=== PATIENT | female | born 1950 | race Caucasian/White ===

== ENCOUNTER 2016-05-04 01:22 | Inpatient (IN) | payer MEDICARE ==
[2016-05-04] VITALS (31 sets, daily range): BP systolic 46–200; BP diastolic 34–111; PULSE 69–113; RESP 14–26; TEMP 93.9; Ht 172.7 cm; Wt 59.1 kg
[~2016-05-04] VITALS: Ht 172.7 cm; Wt 59.1 kg
[2016-05-04] MEDS ORDERED: CEFTRIAXONE 1 GM/50 ML (PMX) 50 ML IVPB STA (01:35)
[2016-05-04 01:46] LABS: ADD UMIC YES; URINE BILIRUBIN (Dip) NEGATIVE (NEGATIVE); URINE BLOOD (Dip) NEGATIVE (NEGATIVE); URINE COLOR LT. YELLOW (YELLOW); URINE GLUCOSE (Dip) NEGATIVE (NEGATIVE); URINE KETONES (Dip) NEGATIVE (NEGATIVE); URINE LEUKOCYTE ESTERASE (Dip) NEGATIVE (NEGATIVE); URINE NITRITE (Dip) NEGATIVE (NEGATIVE); URINE TOTAL PROTEIN (Dip) 1+ (NEGATIVE); URINE UROBILINOGEN (Dip) 0.2 E.U./dL (0.1-1.0)
[2016-05-04 01:49] LABS: ALBUMIN 4.1 g/dl (3.3-4.9); CHLORIDE 100 mmol/L (97-110)
[2016-05-04 01:50] LABS: INR 1.71; POTASSIUM 3.6 mmol/L (3.5-5.1); PROTIME 20.2 Sec (12.2-14.2); PT RATIO 1.6; SODIUM 143 mmol/L (135-144)
[2016-05-04 01:52] LABS: ALBUMIN/GLOBULIN RATIO 1.24; ANION GAP 19 (8-16); ASPARTATE AMINO TRANSFERASE 31 IU/L (15-46); BASOPHIL # 0.1 10^3/ul (0.0-0.1); BASOPHILS % 0.8 % (0.0-2.0); BILIRUBIN,INDIRECT 0.4 mg/dl (0-1.1); BILIRUBIN,TOTAL 0.4 mg/dl (0.2-1.3); CARBON DIOXIDE 28 mmol/L (21-31); CREATININE 0.74 mg/dl (0.44-1.00); EOSINOPHILS # 0.3 10^3/ul (0.0-0.5); EOSINOPHILS % 2.4 % (0.0-7.0); HEMATOCRIT 39.5 % (37.0-47.0); HEMOGLOBIN 12.6 g/dl (12.0-16.0); LYMPHOCYTES # 4.9 10^3/ul (0.8-2.9); LYMPHOCYTES % 39.5 % (15.0-51.0); MEAN CORPUSCULAR HEMOGLOBIN 26.2 pg (29.0-33.0); MEAN CORPUSCULAR HGB CONC 31.9 g/dl (32.0-37.0); MONOCYTE # 1.1 10^3/ul (0.3-0.9); MONOCYTES % 9.1 % (0.0-11.0); NEUTROPHILS % 48.2 % (39.0-77.0); PLATELET COUNT 388 10^3/UL (140-440); RED BLOOD COUNT 4.82 10^6/ul (4.20-5.40); RED CELL DISTRIBUTION WIDTH 19.5 % (11.5-14.5); TOTAL PROTEIN 7.4 g/dl (6.1-8.1); UNCORRECTED WBC 12.5 10^3/ul (4.8-10.8); WHITE BLOOD COUNT 12.5 10^3/ul (4.8-10.8)
[2016-05-04 01:53] LABS: ALANINE AMINOTRANSFERASE 20 IU/L (13-69); ALKALINE PHOSPHATASE 79 IU/L (42-121); BLOOD UREA NITROGEN 25 mg/dl (7-20); CALCIUM 9.2 mg/dl (8.4-10.2); GLUCOSE 250 mg/dl (70-220)
[2016-05-04 01:55] LABS: CONDITION 1; LH ANALYZER COMMENTS 1
[2016-05-04 01:55] LABS: URINE RBCS 0-2 /HPF (0)
[2016-05-04 01:56] LABS: SQUAMOUS EPITHELIAL CELL,UR FEW
[2016-05-04 01:57] LABS: BACTERIA,URINE RARE
[2016-05-04] MEDS ORDERED: LEVOFLOXACIN 750MG/D5W (PMX) 150 ML IVPB ONE (02:00)
--- NOTE | 2016-05-04 02:03 | RADRPT ---
PROCEDURE: XR Chest. CLINICAL INDICATION: Possible sepsis. TECHNIQUE: Single frontal view of the chest was obtained COMPARISON: None FINDINGS: Endotracheal intubation is seen with tip about 36 mm above the nadeem. Nasogastric tube is seen wit h tip and side port in the proximal to mid stomach. The heart and mediastinum are within normal limits. Mild right lung base atelectasis versus airspace disease. Left lung is clear. There is no pleural effusion or pneumothorax. IMPRESSION: 1. Endotracheal intubation is seen with tip about 36 mm above the nadeem. 2. Nasogastric tube is seen with tip and side port in the proximal to mid stomach. 3. Mild right lung base atelectasis versus airspace disease, suggesting pneumonia in setting of sep sis. RPTAT: [facility]U Physician Ashtyn Date Time Electronically viewed and signed by Physician Ashtyn on 05/04/2016 02:03 RS/
[2016-05-04 02:07] LABS: TROPONIN-I < 0.012 ng/ml (0.00-0.12)
[2016-05-04] MEDS ORDERED: LEVETIRACETAM IV 1,000 MG in SOD CHLORIDE 0.9% 100 ML IVPB STA (02:18)
[2016-05-04] MEDS ORDERED: niCARdipine-D5W 0.1MG/ML DRIP 200 ML IV STA (02:18)
--- NOTE | 2016-05-04 02:23 | RADRPT ---
PROCEDURE: CT brain without contrast. CLINICAL INDICATION: Altered mental status. TECHNIQUE: CT scan of the brain was performed on a multi-detector high-resolution CT scanner. Co ntiguous axial images were obtained from the skull base to the vertex without intravenous contrast. Coronal and sagittal reformatted images were also obtained. Images were reviewed on the PACS works tation. One or more of the following dose reduction techniques were used: - Automated exposure control. - Adjustment of the mA and/or kV according to patient size. - Use of iterative reconstruction technique. Exam CTD/vol = 44.26 mGy. Total exam DLP = 810.25 mGy-cm. COMPARISON: None. FINDINGS: There is a large area of hemorrhage throughout the brain stem and cerebellar vermis. There is moder ate intraventricular hemorrhage. The ventricles including bilateral temporal horns are dilated cons istent with mild hydrocephalus. There is subarachnoid hemorrhage within the basal cistern. The ventr icles and cortical sulci are prominent consistent with mild age related volume loss. There are patc hy areas of low attenuation within the periventricular white matter consistent with mild chronic isc hemic changes secondary to small vessel disease. There is no midline shift. There is prior bilateral suboccipital craniotomy with areas of encephalomalacia within the cerebellu m. Visualized paranasal sinuses and mastoid air cells are clear. IMPRESSION: Large area of hemorrhage throughout the brain stem and cerebellar vermis. Moderate intraventricular hemorrhage. Mild subarachnoid hemorrhage within the basal system. Mild hydrocephalus. Mild age related volume loss and chronic ischemic white matter disease. A call report was made to Dr. Farris at 02:20 a.m. .Pineda Collins MD, MD Date Time Electronically viewed and signed by .Pineda Collins MD, MD on 05/04/2016 02:23 .T/
[2016-05-04] MEDS ORDERED: LABETALOL HCL 20MG INJ IV ONE (02:30)
[2016-05-04 02:36] LABS: Allen Test ACCEPTAB; Arterial Base Excess 1.8 mmol/L (-3.0-3); Arterial COHb 0.1 % (0.0-3.0); Arterial Fraction of Oxyhgb 99.1 % (93.0-99.0); Arterial HCO3 27.3 mmol/L (22.0-26.0); Arterial MetHb 0.2 % (0.0-1.5); Arterial Total Hemglobin 13.3 g/dl (12.0-18.0); MODE VENT - AC
[2016-05-04] MEDS ORDERED: SOD CHLORIDE 0.9% 250 ML IV ONE (02:39)
[2016-05-04] MEDS ORDERED: ACETAMINOPHEN 325 MG TAB PO PRN (05:00)
[2016-05-04] MEDS ORDERED: ALBUTEROL HFA 8 GM INHALER INH PRN (05:00)
[2016-05-04] MEDS ORDERED: IPRATROPIUM (HFA) 12.9 GM INHALER INH PRN (05:00)
[2016-05-04] MEDS ORDERED: LABETALOL HCL 20MG INJ IV PRN (05:00)
[2016-05-04] MEDS ORDERED: morphine 2 MG INJ IV PRN (05:00)
[2016-05-04] MEDS ORDERED: ONDANSETRON 4 MG INJ IV PRN (05:00)
[2016-05-04] MEDS ORDERED: LORAZEPAM 2 MG INJ IV PRN (05:00)
--- NOTE | 2016-05-04 05:39 | ERA ---
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 HPI 65-year-old female brought in by ambulance for respiratory distress at home. She reportedly called out for help. Her son ran in the door and she immediately collapsed. When EMS arrived, her respirations were agonal. She was not responsive. Intubation was attempted without success. Her vitals remained stable in route with supplemental oxygen by bag valve mask. Further history is not available as there is no family at bedside. The paperwork brought in by ambulance shows that the patient has a history of ependymoma and atrial fibrillation, on Xarelto. ROS Limited as the patient is in extremis Allergies Allergies: Coded Allergies: Cephalosporins (Unverified Allergy, Intermediate, CHILLS/SHAKEY, 05/04/16) cefaclor (Unverified Allergy, Intermediate, DIZZINESS, 05/04/16) PMhx/Soc History of Surgery: Yes (PEG TUBE, BRAIN TUMOR removal) Anesthesia Reaction: No Hx Neurological Disorder: Yes (BRAIN CA (COMPLETED CHEMO/RADIATION 11/2015), SEIZURES, TIA'S) Hx Respiratory Disorders: Yes (DYSPHAGIA, pneumonia) Hx Cardiac Disorders: Yes (AFIB, IDIOPATHIC HYPOTENSION) Hx Psychiatric Problems: No Hx Miscellaneous Medical Probl: Yes (THYROID PROBLEM, EPENDYMOMA, SEVERE SEPSIS ) Hx Tobacco Use: Yes Smoking Status: Former smoker FmHx Family History: other (Unable to obtain) Physical Exam Vitals Vital Signs Date Time Temp Pulse Resp B/P Pulse Ox O2 Delivery O2 Flow Rate FiO2 05/04/16 04:50 63 14 100 40 05/04/16 03:10 93.1 05/04/16 02:50 63 18 153/101 97 Mechanical Ventilator 05/04/16 02:45 64 18 149/101 97 Mechanical Ventilator 05/04/16 02:40 66 18 148/101 100 Mechanical Ventilator 05/04/16 02:40 64 14 100 40 05/04/16 02:35 71 18 211/113 100 Mechanical Ventilator 05/04/16 02:30 73 18 219/129 100 Mechanical Ventilator 05/04/16 02:25 72 18 215/131 100 Mechanical Ventilator 05/04/16 02:20 72 18 214/126 100 Mechanical Ventilator 05/04/16 02:15 73 18 213/121 100 Mechanical Ventilator 05/04/16 02:10 74 18 222/135 100 Mechanical Ventilator 05/04/16 02:05 75 18 213/121 100 Mechanical Ventilator 05/04/16 02:00 75 18 211/120 100 Mechanical Ventilator 05/04/16 01:55 75 18 205/121 100 Mechanical Ventilator 05/04/16 01:50 75 18 203/122 100 Mechanical Ventilator 05/04/16 01:45 79 18 166/111 100 Mechanical Ventilator 05/04/16 01:40 83 14 113/89 100 Mechanical Ventilator 05/04/16 01:35 83 14 100 100 05/04/16 01:35 88 16 86/73 100 Mechanical Ventilator 05/04/16 01:30 89 18 110/80 100 Ambu Bag 15.0 05/04/16 01:27 97 20 157/88 100 05/04/16 01:25 Bag Valve Mask Physical Exam Const: Toxic, agonal respirations Head: Atraumatic Eyes: Normal Conjunctiva, pupils blown bilaterally right greater than left, not reactive to light ENT: Blood in oropharynx Neck: No JVD Resp: Rhonchi bilaterally Cardio: Regular rate and rhythm, no murmurs Abd: Soft, non tender, non distended. G-tube in place. Normal bowel sounds Skin: No petechiae or rashes Ext: No cyanosis, or edema Neur: Obtunded, no purposeful movements Result Diagram: 05/04/1612905/04/16 0130 Results 24 hrs Laboratory Tests Test 05/04/16 01:25 05/04/16 01:30 05/04/16 01:35 05/04/16 04:30 Urine Bacteria RARE Urine Bilirubin NEGATIVE Urine Clarity CLEAR Urine Color LT. YELLOW Urine Glucose NEGATIVE% Urine Hemoglobin NEGATIVE Urine Ketones NEGATIVE Urine Leukocyte Esterase NEGATIVE Urine Microscopic RBC 0-2/HPF Urine Microscopic WBC 0-2/HPF Urine Nitrite NEGATIVE Urine Specific [place] 1.025 Urine Squamous Epithelial Cells FEW Urine Total Protein 1+ Urine Urobilinogen 0.2 E.U./dL Urine pH 6.0 Activated Partial Thromboplast Time 28.0Sec Alanine Aminotransferase (ALT/SGPT) 20IU/L Albumin 4.1g/dl Albumin/Globulin Ratio 1.24 Alkaline Phosphatase 79IU/L Anion Gap 19 Aspartate Amino Transf (AST/SGOT) 31IU/L Basophils # 0.110^3/ul Basophils % 0.8% Blood Morphology Comment Blood Urea Nitrogen 25mg/dl Calcium Level 9.2mg/dl Carbon Dioxide Level 28mmol/L Chloride Level 100mmol/L Creatinine 0.74mg/dl Direct Bilirubin 0.00mg/dl Eosinophils # 0.310^3/ul Eosinophils % 2.4% Globulin 3.30g/dl Glucose Level 250mg/dl Hematocrit 39.5% Hemoglobin 12.6g/dl INR International Normalized Ratio 1.71 Indirect Bilirubin 0.4mg/dl Lactic Acid Level 3.1mmol/L 2.0mmol/L Lymphocytes # 4.910^3/ul Lymphocytes % 39.5% Mean Corpuscular Hemoglobin 26.2pg Mean Corpuscular Hemoglobin Concent 31.9g/dl Mean Corpuscular Volume 82.0fl Mean Platelet Volume 8.0fl Monocytes # 1.110^3/ul Monocytes % 9.1% Neutrophils # 6.010^3/ul Neutrophils % 48.2% Nucleated Red Blood Cells # 0.010^3/ul Nucleated Red Blood Cells % 0.0/100WBC Platelet Count 44350^3/UL Potassium Level 3.6mmol/L Prothrombin Time 20.2Sec Prothrombin Time Ratio 1.6 Red Blood Count 4.8210^6/ul Red Cell Distribution Width 19.5% Sodium Level 143mmol/L Total Bilirubin 0.4mg/dl Total Protein 7.4g/dl Troponin I < 0.012ng/ml White Blood Count 12.510^3/ul Arterial Blood HCO3 27.3mmol/L Arterial Blood Base Excess 1.8mmol/L Arterial Blood Oxygen Saturation 99.4mmHG Arie Test ACCEPTAB Arterial Blood Gas Puncture Site Right Radial Arterial Blood Carboxyhemoglobin 0.1% Arterial Blood Date Drawn 05/04/2016 2:20:01 AM Arterial Blood Methemoglobin 0.2% Arterial Blood pCO2 (Temp correct) 46.2mmhg Arterial Blood pH (Temp corrected) 7.389 Arterial Blood pO2 (Temp corrected) 266.8mmHG Blood Gas A-a O2 Differential 400.0mmHg Blood Gas Actual Respiration Rate 14 Blood Gas Inspiratory Pressure 22.0 Blood Gas Low PEEP Setting 5.0cmH2O Blood Gas Modality VENT - AC Blood Gas Notified Time 05/04/2016 2:36:20 AM Blood Gas Notified Whom MA Blood Gas Respiration Rate 14.0 Blood Gas Specimen Source Blood arterial Blood Gas Temperature 37.0C Blood Gas Tidal Volume 452.0mL FiO2 100.0% Oxyhemoglobin Percent 99.1% Total Hemoglobin 13.3g/dl Current Medications Medications (Trade) Dose Ordered Sig/Francisco Route PRN Reason Start Time Stop Time Status Last Admin Dose Admin Ceftriaxone Sodium 50 ml @ 100 mls/hr ONCE STAT IVPB 05/04/16 01:35 05/04/16 01:45 DC Levofloxacin/ Dextrose (Levaquin 750 Mg/ D5W 150 ml (Pmx)) 150 ml @ 100 mls/hr ONCE ONCE IVPB 05/04/16 02:00 05/04/16 03:29 DC 05/04/16 02:21 Labetalol HCl 20 mg 20 mg ONCE ONCE IV 05/04/16 02:30 05/04/16 02:31 DC 05/04/16 02:27 Levetiracetam 1000 mg/Sodium Chloride 110 ml @ 400 mls/hr ONCE STAT IVPB 05/04/16 02:18 05/04/16 02:34 DC 05/04/16 02:54 Nicardipine HCl 200 ml @ 50 mls/hr ONCE STAT IV 05/04/16 02:18 05/04/16 06:17 05/04/16 03:42 Sodium Chloride (NS) 250 ml @ 0 mls/hr Q0M ONCE IV 05/04/16 02:39 05/04/16 02:41 DC 05/04/16 04:17 Ondansetron HCl (Zofran Inj) 4 mg Q6H PRN IV NAUSEA AND/OR VOMITING 05/04/16 05:00 UNV Albuterol (Ventolin Hfa) 4 puff Q2H RESP THERAPY PRN INH SHORTNESS OF BREATH 05/04/16 05:00 UNV Ipratropium [place] (Atrovent Hfa) 4 puff Q2H RESP THERAPY PRN INH SHORTNESS OF BREATH 05/04/16 05:00 UNV Morphine Sulfate (morphine) 2 mg Q4H PRN IV PAIN LEVEL 7-10 05/04/16 05:00 UNV Lorazepam (Ativan) 1 mg Q2H PRN IV ANXIETY 05/04/16 05:00 UNV Pantoprazole (Protonix Iv) 40 mg DAILY@06 IV 05/04/16 06:00 UNV Labetalol HCl 10 mg 10 mg Q10M PRN IV ELEVATED BLOOD PRESSURE 05/04/16 05:00 UNV Nicardipine HCl/ Dextrose (Cardene Iv/D5W) 250 ml @ 50 mls/hr PER PROTOCOL IV 05/04/16 05:00 UNV Acetaminophen (Tylenol Tab) 650 mg Q4H PRN PO TEMP GREATER THAN 99.6F 05/04/16 05:00 UNV Docusate Sodium (Colace) 100 mg BID PO 05/04/16 09:00 UNV Procedures/MDM EKG: Rate/Rhythm: Normal Sinus Rhythm QRS, ST, T-waves: Minimal anterior lateral ST depressions Impression: No evidence of arrhythmia, ST depressions may be signs of ischemia Patient presented after what seemed to be a respiratory arrest at home. She never lost pulses. However she was in respiratory distress and needed to given supplemental oxygen by bag valve mask. When the patient arrived, she was immediately intubated for agonal respirations. Pupils were noted to be dilated and not reactive to light. CT of the brain confirmed a cerebellar and brainstem hemorrhage with signs of increased intracranial pressure. She was started on IV medications to control her blood pressure for hypertensive emergency. Her lactate was noted to be elevated, which may be due to sepsis versus tissue hypoperfusion from her respiratory distress. Broad-spectrum antibiotics were given. Only 1 L of IV fluids were given as my suspicion for acute infection is low. 2 units of FFP were ordered as the patient is on Xarelto. I discussed the case with the neurosurgeon on-call. I discussed my findings with the patient's 2 sons at bedside. Patient will be admitted to the ICU for further management of her intracranial bleeding, hypertensive emergency , and acute respiratory failure. Severe Sepsis Assessment: Infectious Source: Possibly pneumonia End organ damage indicated by: Lactate > 2.0 mmol/L Severe Sepsis Managment: Blood Cultures X 2 before broad spectrum antibiotics initiated within 3 hours of recognition. 30 ml/kg NS bolus Completed Initial Lactate: 3.1 Repeat Lactate pending Critical Care: Time: 40 minutes Treatments/Evaluations: Emergent fluid management, while maintaining close respiratory support. Immediate broad spectrum antibiotic therapy. Simultaneous assessment for possible sources in order to direct therapy. Consideration for invasive and chemical support to prevent respiratory or cardiac collapse. Septic Shock Assessment (1 hour post 30 ml/kg fluid bolus): Hypotension (SBP < 90 or 40 mmHg drop, MAP < 65): No Lactic acid > 4.0 No Accepting Care Team: Current data and ongoing care discussed. Time: Time of admission Primary Provider: Ferny Consulting: [place] (Neurosurgery) Outstanding Data: cultures Departure Diagnosis: Primary Impression: Acute respiratory failure Qualified Code: J96.00 - Acute respiratory failure, unspecified whether with hypoxia or hypercapnia Additional Impressions: Hypertensive emergency Hemorrhage of brainstem with loss of consciousness Pneumonia Qualified Code: J69.0 - Aspiration pneumonia of right lower lobe, unspecified aspiration pneumonia type Anticoagulated by anticoagulation treatment Acute encephalopathy Lactic acidosis Condition: Critical LEOPOLDO LEONARDO MD May 04, 2016 05:39
[2016-05-04] MEDS: PANTOPRAZOLE 40 MG INJ IV SCH ×2 (06:02→07:02)
[2016-05-04] MEDS ORDERED: ROCURONIUM 50 MG INJ ONE (07:00)
[2016-05-04] MEDS ORDERED: ETOMIDATE 20 MG INJ ONE (07:00)
--- NOTE | 2016-05-04 07:22 | HP ---
DATE OF ADMISSION: 05/04/2016 TIME SEEN: 5 a.m. CHIEF COMPLAINT: Altered loss of consciousness. HISTORY OF PRESENT ILLNESS: The patient is a 65-year-old female with a history of brain cancer stat us post chemo/radiation, a history of seizures and TIA's, atrial fibrillation, idiopathic hypotensio n, dysphagia, status post PEG tube, pneumonia and thyroid disorder, who was brought to the ER after the patient became unresponsive at home. The patient is currently intubated, and as such, the infor mation is gathered from chart review and from the ER physician. The patient was just discharged fro [facility] yesterday after she was initially admitted for pneumonia. Reportedly, last night her son said he heard a bang in the kitchen and when he went to check, found his mom holding h er hands up in an attempt to call for help. She then became unresponsive and he started doing CPR. When the patient presented to the ER her blood pressure was 157/88, heart rate 97, respiratory rate 20, temperature 93.1, oxygen saturation 100% on oxygen. She then briefly became hypotensive, with a systolic blood pressure in the 80s, before becoming hypertensive, with a blood pressure as high as 222/135. The patient was given labetalol 20 mg IV x1, after which her blood pressure improved. She was intubated because of continued altered level of consciousness and started on Keppra and antibio tics. CT of the brain showed a large area of hemorrhage throughout of the brainstem and cerebral __ ___, moderate intraventricular hemorrhage, mild subarachnoid hemorrhage within the basal system, and mild hydrocephalus. As mentioned, the patient has been intubated and currently awaiting admission to the ICU. Neurosurg khalif on the case is Dr. Quintanilla. REVIEW OF SYSTEMS: Unable to fully assess. PAST MEDICAL HISTORY: As per HPI. PAST SURGICAL HISTORY: As per HPI. SOCIAL HISTORY: Unknown. ALLERGIES: 1. CEPHALOSPORINS. 2. CEFACLOR. HOME MEDICATIONS: None listed, so will await a list from home. PHYSICAL EXAMINATION: VITAL SIGNS: Currently blood pressure is 128/82, heart rate 64, respiratory rate 18, temperature 93 .9, oxygen saturation 97% on 40% FIO2. GENERAL: The patient is intubated. She had been placed in a Coty Hugger for hypothermia. No acute distress noted. HEENT: Normocephalic. Pupils are very minimally reactive to light. CARDIOVASCULAR: Slightly tachycardic, with a regular rhythm. LUNGS: Clear. Good air movement. ABDOMEN: Soft, nondistended. Positive bowel sounds. EXTREMITIES: No edema. LABORATORY: WBC 12.5, BUN 25, glucose 250. Initial lactic acid of 3.1. Otherwise CBC and CMP are within normal limits. IMAGING: Brain CT with results as stated in the HPI. Chest x-ray shows mild right lung basilar ate lectasis versus airspace disease, suggesting pneumonia in the setting of sepsis. IMPRESSION: 1. Acute hemorrhagic stroke. 2. History of brain cancer, status post resection, chemo and radiation. 3. History of atrial fibrillation. 4. History of seizures. 5. History of transient ischemic attacks. 6. Pneumonia. 7. Dysphagia, with a PEG tube. PLAN: Admit to ICU and perform frequent neuro checks. Brain imaging will be repeated. Neurosurgery is already on the case. Dr. Quintanilla is the neurosurgeon on this case. Will place a NG tube. She will be on Keppra, especially given her history of seizures. Will also get neurology involved in the case. Will need to have a family meeting to discuss about the prognosis and code status. Further workup and management per clinical course. Total critical time spent was about 40 minutes. Dictated By: PIO PEÑALOZA/WILLIAM Conf#: [id number] DID#: [id number]
--- NOTE | 2016-05-04 07:31 | CONS ---
Date/Time of Note Date/Time of Note DATE: 05/04/16 TIME: 06:48 Assessment/Plan Assessment/Plan Problems: (1) Hemorrhage of brainstem with loss of consciousness Status: Acute Comment: This patient has suffered a massive brainstem hemorrhage and has a very poor neurological exam with no brainstem reflexes present on exam and no evidence of higher brain function. The CT appearance is not compatible with survival. Furthermore she has been anticoagulated with Xarelto - even if she were not coagulopathic, any neurosurgical intervention would be futile. She does have a complex prior history. The most common cause for hemorrhage in this area is uncontrolled hypertension, but this is not part of the patient's history. Bleed likely the result of underlying structural abnormality (which she has) combined with anticoagulation. Exam at this point is consistent with brain . Would recommend proceeding with brain protocol including apnea test and confirmatory neurological examination by another physician. If protocol requires test of cortical function (EEG, nuclear medicine study, etc) then this will be necessary, although the structural abnormality evident on CT is in my opinion not compatible with survival. These issues were discussed with the patient's son and daughter in law. Recommend: 1. Proceed with brain testing protocol. 2. In my opinion any further attempts at reversal of anticoagulation would be futile. 3. Ventilatory support and cardiovascular support as needed for now. Consultation Date/Type/Reason Admit Date/Time May 04, 2016 at 03:16 Date of Consultation: May 04, 2016 Type of Consultation: Neurosurgery Reason for Consultation Brainstem hemorrhage Hx of Present Illness This is a patient with pmhx posterior fossa craniotomy for ependymoma about 15 years ago. She then had recurrence with metastases to cerebrum and cervical spine 12 years later. More recently she underwent XRT and chemotherapy. She also has been taking Xarelto for a-fib. At about 1 AM, was found by her son in bed gurgling, incoherent, and trying to raise herself out of bed. Shortly after she was unresponsive. 911 called and patient found in extremis in the field. Intubation attempted and patient transferred by ambulance to ER. She was intubated in the ER. At time of first evaluation, she was found to be with fixed and dilated pupils. CT head done. Subjective hx not possible: pt non-verbal, pt critical Past Medical History Medical History: other (brain tumor (ependymoma), s/p craniotomy, XRT, chemotherapy, atrial fibrillation, thyroid disease) Past Surgical History Past Surgical Hx: other (postior fossa craniotomy) Social History Smoking Status: Former smoker Exam/Review of Systems Vital Signs Vitals Vital Signs Date Time Temp Pulse Resp B/P Pulse Ox O2 Delivery O2 Flow Rate FiO2 05/04/16 06:00 69 18 204/113 100 Mechanical Ventilator 05/04/16 05:15 93.9 05/04/16 04:50 40 05/04/16 01:30 15.0 Intake and Output 05/03/16 05/03/16 05/04/16 15:00 23:00 07:00 Intake Total 260 ml Output Total 2500 ml Balance -2240 ml Exam Constitutional: non-verbal Head: other (postior incision ok; atraumatic) Gastrointestinal: other (g-tube in place) Neurological: other (Intubated; no eye opening, no motor response to deep stim bilateral (GCS 2I); tone flaccid; toes triple flexion reflex bilateral;pupils large, not reactive (R 6mm, L 7mm); no corneals, no doll's eyes, no cough or gag reflex) Results I reviewed CT brain. Extensive hemorrhage in brainstem (involving large areas of dante and midbrain bilaterally), 4th ventricle, and cerebellar vermis. Extension of blood to 3rd and lateral ventricles, ventriculomegaly; old posterior fossa craniotomy with bone flap and hardware in place. Result Diagram: 05/04/16 01305/04/16 013 Results 24 hrs Laboratory Tests Test 05/04/16 01:25 05/04/16 01:30 05/04/16 01:35 05/04/16 04:30 Urine Bacteria RARE Urine Bilirubin NEGATIVE Urine Clarity CLEAR Urine Color LT. YELLOW Urine Glucose NEGATIVE Urine Hemoglobin NEGATIVE Urine Ketones NEGATIVE Urine Leukocyte Esterase NEGATIVE Urine Microscopic RBC 0-2 Urine Microscopic WBC 0-2 Urine Nitrite NEGATIVE Urine Specific [place] 1.025 Urine Squamous Epithelial Cells FEW Urine Total Protein 1+ H Urine Urobilinogen 0.2 E.U./dL Urine pH 6.0 Activated Partial Thromboplast Time 28.0 Alanine Aminotransferase (ALT/SGPT) 20 Albumin 4.1 Albumin/Globulin Ratio 1.24 Alkaline Phosphatase 79 Anion Gap 19 H Aspartate Amino Transf (AST/SGOT) 31 Basophils # 0.1 Basophils % 0.8 Blood Morphology Comment Blood Urea Nitrogen 25 H Calcium Level 9.2 Carbon Dioxide Level 28 Chloride Level 100 Creatinine 0.74 Direct Bilirubin 0.00 Eosinophils # 0.3 Eosinophils % 2.4 Globulin 3.30 H Glucose Level 250 H Hematocrit 39.5 Hemoglobin 12.6 INR International Normalized Ratio 1.71 Indirect Bilirubin 0.4 Lactic Acid Level 3.1 H 2.0 Lymphocytes # 4.9 H Lymphocytes % 39.5 Mean Corpuscular Hemoglobin 26.2 L Mean Corpuscular Hemoglobin Concent 31.9 L Mean Corpuscular Volume 82.0 Mean Platelet Volume 8.0 Monocytes # 1.1 H Monocytes % 9.1 Neutrophils # 6.0 Neutrophils % 48.2 Nucleated Red Blood Cells # 0.0 Nucleated Red Blood Cells % 0.0 Platelet Count 388 Potassium Level 3.6 Prothrombin Time 20.2 H Prothrombin Time Ratio 1.6 Red Blood Count 4.82 Red Cell Distribution Width 19.5 H Sodium Level 143 Total Bilirubin 0.4 Total Protein 7.4 Troponin I < 0.012 White Blood Count 12.5 H Arterial Blood HCO3 27.3 H Arterial Blood Base Excess 1.8 Arterial Blood Oxygen Saturation 99.4 H Arie Test ACCEPTAB Arterial Blood Gas Puncture Site Right Radial Arterial Blood Carboxyhemoglobin 0.1 Arterial Blood Date Drawn 05/04/2016 2:20:01 AM Arterial Blood Methemoglobin 0.2 Arterial Blood pCO2 (Temp correct) 46.2 H Arterial Blood pH (Temp corrected) 7.389 Arterial Blood pO2 (Temp corrected) 266.8 H Blood Gas A-a O2 Differential 400.0 H Blood Gas Actual Respiration Rate 14 Blood Gas Inspiratory Pressure 22.0 Blood Gas Low PEEP Setting 5.0 Blood Gas Modality VENT - AC Blood Gas Notified Time 05/04/2016 2:36:20 AM Blood Gas Notified Whom ME Blood Gas Respiration Rate 14.0 Blood Gas Specimen Source Blood arterial Blood Gas Temperature 37.0 Blood Gas Tidal Volume 452.0 FiO2 100.0 Oxyhemoglobin Percent 99.1 H Total Hemoglobin 13.3 Test 05/04/16 05:45 Lactic Acid Level 1.8 Medications Medications Xarelto Current Medications Ondansetron HCl (Zofran Inj) 4 mg Q6H PRN IV NAUSEA AND/OR VOMITING; Start at 05:00 Morphine Sulfate (morphine) 2 mg Q4H PRN IV PAIN LEVEL 7-10; Start 05/04/16 at 05:00 Lorazepam (Ativan) 1 mg Q2H PRN IV ANXIETY; Start 05/04/16 at 05:00 Pantoprazole (Protonix Iv) 40 mg DAILY@06 IV Last administered on 05/04/16t 06: 02; Admin Dose 40 MG; Start 05/04/16 at 06:00 Labetalol HCl (Labetalol) 10 mg Q10M PRN IV ELEVATED BLOOD PRESSURE; Start at 05:00 Acetaminophen (Tylenol Tab) 650 mg Q4H PRN PO TEMP GREATER THAN 99.6F; Start at 05:00 Docusate Sodium (Colace) 100 mg BID PO ; Start 05/04/16 at 09:00 DEIDRE SANDOVAL MD May 04, 2016 06:59
[2016-05-04] MEDS ORDERED: DOCUSATE SODIUM 100 MG CAP PO SCH (09:00)
[2016-05-04 10:38] LABS: AADO2 Arterial 115.6 mmHg (7.0-24.0); Allen Test ACCEPTAB; Arterial Base Excess 1.4 mmol/L (-3.0-3); Arterial COHb 0.5 % (0.0-3.0); Arterial Fraction of Oxyhgb 97.8 % (93.0-99.0); Arterial HCO3 25.8 mmol/L (22.0-26.0); Arterial MetHb 0.1 % (0.0-1.5); Arterial Total Hemglobin 14.2 g/dl (12.0-18.0); MODE VENT - AC
--- NOTE | 2016-05-04 12:30 | CONS ---
DATE OF ADMISSION: 05/04/2016 DATE OF CONSULTATION: 05/04/2016 TYPE OF CONSULTATION: Pulmonary. REASON FOR CONSULTATION: Ventilator management. Thank you, Dr. Isaacs, for this consultation. HISTORY OF PRESENT ILLNESS: This is a 65-year-old lady with history of brain cancer, status post ch emoradiation, history of seizure disorder, atrial fibrillation, came in yesterday after recent disch arge from [facility] for altered mental status. She became unresponsive at home. CPR was commenced. Upon arrival to the emergency room, CT scan was performed which showed an extensive brai nstem hemorrhage. Neurosurgery was called and patient's condition was consistent with severe brain injury, possible brain . PAST MEDICAL HISTORY: Brain tumor. MEDICATIONS: Per chart. ALLERGIES: CEPHALOSPORINS AND . SYSTEMS REVIEW: A 12-point review of systems Unable to perform. PHYSICAL EXAMINATION GENERAL: Chronically ill appearing lady, intubated on mechanical ventilation. VITAL SIGNS: Temperature 98, pulse is 74, blood pressure 140/86, O2 saturation 96%, FIO2 of 40%. NECK: Supple. No JVD or lymphadenopathy. CARDIAC: S1, S2, no added sounds or murmurs. CHEST: Diminished air entry bilaterally. ABDOMEN: Soft, nontender. No guarding or rebound. EXTREMITIES: No cyanosis, clubbing. NEUROLOGIC: Unable to assess. LABORATORIES: White count 12.5, hemoglobin 12.6, BUN 25, creatinine 0.74. ABG: pH 7.38, pCO2 of 4 6, PaO2 of 266. Chest x-ray was reviewed, shows mild atelectasis, possible early pneumonia. CT brain was performed which shows large hemorrhage throughout brainstem and cerebellar mass. IMPRESSION AND PLAN 1. History of brain cancer. 2. Brainstem hemorrhage. 3. Likely brain given clinical exam. 4. History of hypertension. PATIENT WILL NEED 1. EEG and apnea testing. 2. Neurosurgery recommendations. 3. Palliative care input. 4. Consider evaluation by Rohit. Dictated By: IFEANYI DE LA ROSA/WILLIAM Conf#: [id number] DID#: [id number]
[2016-05-04] MEDS ORDERED: NORepinephrine 8MG/250 ML (PMX 250 ML ONE (13:56)
[2016-05-04] MEDS ORDERED: NORepinephrine 8MG/250 ML (PMX 250 ML IV SCH (14:30)
--- NOTE | 2016-05-04 18:45 | EN ---
Date/Time of Note Date/Time of Note DATE: 05/04/16 TIME: 18:39 Event Note Medicine Medicine Event Note Note: S: pt seen and examined. O: PE: Gen - non responsive to verbal or physical stimuli HEENT - pupils not reactive to light, no EO movements Lungs - no BS heard CV - no heart sounds heard abd - no BS heard pulses - non-palpable DP and PT B/L Time of : 17:52 on 05/04/2016 MITCHELL DEL ROSARIO May 04, 2016 18:45
--- NOTE | 2016-05-05 02:09 | NEURPT ---
DATE: 05/04/2016 ELECTROENCEPHALOGRAM INDICATION: A 65-year-old lady with hemorrhagic stroke, history of brain cancer. EEG was requested for evaluation of brain . Temperature 100.1, blood pressure 63/41, pulse 86, respirations 14. DESCRIPTION OF PROCEDURE: EEG was recorded digitally following electrocerebral silence protocol. C ap electrodes were placed in accordance with International 10-20 system of electrode placement. Sca lp-to-scalp and [id number] montages were recorded and reviewed. EEG was reviewed on high setting of sensitivity, 2 microvolts per millimeter. All impedances were measured and recorded. Electrocerebral silence was seen throughout recording with exception of cardiac and pulse artifacts. IMPRESSION: Abnormal study. No brain electrical activity with exception of pulse and cardiac artif act recorded. This electroencephalogram could be used as secondary brain confirmatory testing if taken in context of clinical evaluation. Dictated By: NELLY CHRISTIAN/WILLIAM Conf#: [id number] DID#: [id number]
== END 2016-05-04 17:52 | disposition expired | DRG 64 ==
LOC: E/R 01:22 → ICU 03:16
PROVIDERS: ADMIT Internal Medicine; ATTEND Internal Medicine
PROC: 5A1935Z Respiratory Ventilation, Less than 24 Consecutive Hours (ICD-10-PCS; principal; 2016-05-04)
PROC: 0BH17EZ Insertion of Endotracheal Airway into Trachea, Via Natural or Artificial Opening (ICD-10-PCS; 2016-05-04)
PROC: 30233K1 Transfusion of Nonautologous Frozen Plasma into Peripheral Vein, Percutaneous Approach (ICD-10-PCS; 2016-05-04)
DX: I61.3 Nontraumatic intracerebral hemorrhage in brain stem (principal); J96.00 Acute respiratory failure, unspecified whether with hypoxia or hypercapnia; J69.0 Pneumonitis due to inhalation of food and vomit; C71.9 Malignant neoplasm of brain, unspecified; R13.10 Dysphagia, unspecified; Z93.1 Gastrostomy status; I16.1 Hypertensive emergency; Z66 Do not resuscitate; Z79.02 Long term (current) use of antithrombotics/antiplatelets; I61.5 Nontraumatic intracerebral hemorrhage, intraventricular; I60.9 Nontraumatic subarachnoid hemorrhage, unspecified
CPT/HCPCS: 31500; 36415; 36430; 36600; 70450; 71010; 80053; 81001; 81003; 82803; 83605; 84484; 85025; 85610; 85730; 86850; 86900; 86901; 87040; 87081; 87086; 93005; 94002; 94770; 96365; 96368; 96375; C9113; J1953; J1956; J2270; J7040; J7070; P9059